=== PATIENT | male | born 1985 | race Caucasian/White ===

== ENCOUNTER 2018-04-14 15:01 | Outpatient (CLI) | payer MEDICAID | END 2018-04-14 23:59 | disposition home or self-care (01) | LOC: CARD DIAG 15:01 | PROVIDERS: ATTEND Internal Medicine Cardiovascular Disease | DX: I34.0 Nonrheumatic mitral (valve) insufficiency (principal); I48.91 Unspecified atrial fibrillation | CPT/HCPCS: 71046; 93306 ==

== ENCOUNTER 2023-09-06 09:01 | Emergency (ER) | payer BC, MEDICAID ==
[~2023-09-06] VITALS: Ht 175.3 cm; Wt 89.0 kg
[2023-09-06 09:04] VITALS: TEMP 97
[2023-09-06] MEDS ORDERED: cyclobenzaprine 10mg tablet PO ONE (10:30)
[2023-09-06] MEDS ORDERED: ketorolac trometh inj. 60 MG/2 ML VIAL IM ONE (10:30)
[2023-09-06] MEDS ORDERED: CYCL-1 PO (10:37)
[2023-09-06 10:51] VITALS: BP 127/76; PULSE 65; RESP 18; O2SAT 98
--- NOTE | 2023-09-06 14:42 | NUR ---
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
== END 2023-09-06 10:46 | disposition home or self-care (01) ==
LOC: ER 09:01
DX: S16.1XXA Strain of muscle, fascia and tendon at neck level, initial encounter (principal); S29.012A Strain of muscle and tendon of back wall of thorax, initial encounter; X58.XXXA Exposure to other specified factors, initial encounter; Y93.89 Activity, other specified; Y92.89 Other specified places as the place of occurrence of the external cause; Y99.8 Other external cause status
CPT/HCPCS: 96372; 99283; J1885